=== PATIENT | male | born 1990 | race Caucasian/White ===

== ENCOUNTER 2021-10-29 09:24 | Outpatient (CLI) | payer BC | END 2021-10-29 09:25 | disposition home or self-care (01) | LOC: CSHRAD 09:24 | PROVIDERS: ATTEND Student in an Organized Health Care Education/Training Program | DX: M54.50 Low back pain, unspecified (principal) | CPT/HCPCS: 72100 ==

== ENCOUNTER 2023-06-16 23:01 | Emergency (ER) | payer BC, OTHER ==
[2023-06-17] MEDS ORDERED: Cyclobenzaprine 10 MG TAB ONE (00:11)
[2023-06-17] MEDS ORDERED: Ketorolac Tromethamine 30 MG/ML VIAL ONE (00:11)
== END 2023-06-17 01:45 | disposition home or self-care (01) ==
LOC: CSHERS 23:01
DX: M94.0 Chondrocostal junction syndrome [Tietze] (principal); F17.210 Nicotine dependence, cigarettes, uncomplicated; F17.220 Nicotine dependence, chewing tobacco, uncomplicated
CPT/HCPCS: 71045; 96372; J1885